=== PATIENT | male | born 1955 | race Caucasian/White ===

== ENCOUNTER 2017-07-26 09:20 | Day surgery (SDC) | payer BC ==
[~2017-07-26 09:20] MED LIST: ceFAZolin 2 GM/SWFI 2 GM/20 ML SYR IVP ONE
[2017-07-26] MEDS ORDERED: LR 1,000 ML IV ONE (09:35)
[2017-07-26] MEDS ORDERED: ceFAZolin 2 GM/SWFI 20 ML SYR IVP ONE (09:45)
[2017-07-26] MEDS ORDERED: BUPIVACAINE/EPI 0.5% 30 ML SDV ONE (09:55)
[2017-07-26] MEDS ORDERED: MIDAZOLAM 2 MG/2 ML VIAL ONE (10:31)
[2017-07-26] MEDS ORDERED: fentaNYL 100 MCG/2 ML INJ ONE (10:36)
[2017-07-26] MEDS ORDERED: PROPOFOL/EMULSION 500 MG/50 ML BOTTLE IV ONE (10:36)
--- NOTE | 2017-07-26 10:43 | PDHPUP ---
History & Physical Update H&P update statement: This history and physical update is based on an assessment of the patient which was completed after admission or registration (within 24 hours), but prior to the surgery/procedure. H&P update: H&P reviewed & patient examined, no change in patient's condition since H&P completed
--- NOTE | 2017-07-26 10:47 | PDANEPAE ---
ANE Past Medical History - Cardiovascular History Hx Arrhythmias: Yes Hx Chest Pain: No Hx Coronary Artery / Peripheral Vascular Disease: No Hx CHF / Valvular Disease: No Hx Palpitations: Yes Cardiovascular History Comment: BP tends to be on the low side. afib. Will request records from Dr Jb sanchez - Pulmonary History Hx COPD: No Hx Asthma/Reactive Airway Disease: No Hx Recent Upper Respiratory Infection: No Hx Oxygen in Use at Home: No Hx Sleep Apnea: No Sleep Apnea Screening Result - Last Documented: Negative - Neurologic History Hx Cerebrovascular Accident: Yes Hx Seizures: No Neurologic History Comment: ? TIA , ? absence seizures, migraines with auras - Endocrine History Hx Diabetes: No - Renal History Hx Renal Disorders: No - Liver History Hx Hepatic Disorders: No - Neurological & Psychiatric Hx Hx Neurological and Psychiatric Disorders: Yes Neurological / Psychiatric History Comment: anxiety - Cancer History Hx Cancer: No - Congenital Disorder History Hx Congenital Disorders: No - GI History Hx Gastrointestinal Disorders: No - Other Health History Other Health History: splits on fingers work related - Chronic Pain History Chronic Pain: Yes - Surgical History Prior Surgeries: AVR with return to surgery 2006 and complicated recovery ANE Review of Systems Review of Systems: - Exercise capacity METS (RN): 5 METS ANE Patient History - Allergies Allergies/Adverse Reactions: No Known Allergies Allergy (Verified 07/17/17 16:44) - Home Medications Home Medications: Atorvastatin Calcium 07/17/17 [Last Taken 07/25/17] Finasteride 07/17/17 [Last Taken 07/25/17] Warfarin Sodium 07/17/17 [Last Taken 07/21/17] - NPO status NPO Since - Liquids (Date): 07/25/17 NPO Since - Solids (Date): 07/25/17 - Smoking Hx Smoking Status: Never smoked - Family Anes Hx Family Hx Anesthesia Complications: none ANE Labs/Vital Signs - Vital Signs Blood Pressure: 114/81 Heart Rate: 62 Respiratory Rate: 16 O2 Sat (%): 94 Height: 175.26 cm Weight: 76.204 kg ANE Physical Exam - Airway Neck exam: FROM Mallampati Score: Class 2 Mouth exam: normal dental/mouth exam - Pulmonary Pulmonary: no respiratory distress, no rales or rhonchi, clear to auscultation - Cardiovascular Cardiovascular: regular rate and rhythym, no murmur, rub, or gallop - ASA Status ASA Status: III ANE Anesthesia Plan Anesthesia Plan: general endotracheal anesthesia
[2017-07-26] MEDS ORDERED: DEXAMETHASONE 4 MG/ML VIAL ONE (11:08)
[2017-07-26] MEDS ORDERED: ROCURONIUM 50 MG/5 ML VIAL ONE (11:08)
[2017-07-26] MEDS ORDERED: METOCLOPRAMIDE 10 MG/2 ML VIAL ONE (11:08)
[2017-07-26] MEDS ORDERED: KETOROLAC 30 MG/1 ML SDV ONE (11:08)
[2017-07-26] MEDS ORDERED: ONDANSETRON 4 MG/2 ML VIAL ONE (11:08)
[2017-07-26] MEDS ORDERED: SUGAMMADEX SODIUM 200 MG/2 ML VIAL IVP ONE (11:08)
[2017-07-26] MEDS ORDERED: LIDOCAINE 2% 5 ML SDV ONE (11:08)
[2017-07-26] MEDS ORDERED: NALOXONE HCL 0.4 MG/ML INJ IVP PRN (11:09)
[2017-07-26] MEDS ORDERED: ONDANSETRON 4 MG/2 ML VIAL IVP PRN (11:14)
[2017-07-26] MEDS ORDERED: ACETAMINOPHEN 500 MG TAB PO PRN (11:14)
[2017-07-26] MEDS ORDERED: MEPERIDINE 25 MG/ML SYR IVP PRN (11:14)
[2017-07-26] MEDS ORDERED: LR 500 ML IV PRN (11:14)
[2017-07-26] MEDS ORDERED: ALBUTEROL 3 ML DEYVIAL IH PRN (11:14)
[2017-07-26] MEDS ORDERED: fentaNYL 100 MCG/2 ML INJ IVP PRN (11:14)
[2017-07-26] MEDS ORDERED: OXYCODONE/APAP 5/325 TAB PO PRN (11:14)
[2017-07-26] MEDS ORDERED: HYDROCODONE/APAP 5/325 TAB PO PRN (11:14)
[2017-07-26] MEDS ORDERED: DEXAMETHASONE 4 MG/ML VIAL IVP PRN (11:14)
[2017-07-26] MEDS ORDERED: METOCLOPRAMIDE 10 MG/2 ML VIAL IVP PRN (11:14)
--- NOTE | 2017-07-26 12:06 | POSTOPPROG ---
Post Op Note Date of Operation: 07/26/17 Surgeon: Micah Borrego Anesthesiologist: Dr. Silva Anesthesia: GET(General Endotracheal) Pre-op Diagnosis: BIH Post-op Diagnosis: BIH Procedure: Lap BIHR Inf/Abcess present in the surg proc area at time of surgery?: No EBL: Minimal
[2017-07-26 12:10] VITALS: PULSE 57; TEMP 96.6
--- NOTE | 2017-07-26 13:11 | POSTANESTH ---
Post Anesthetic Evaluation Cardiovascular Status: Normal, Stable Respiratory Status: Normal, Stable Level of Consciousness/Mental Status: Mildly Sleepy, Arousable Pain Control: Adequate, Prn Tx Ordered Nausea/Vomiting Control: Adequate, Prn Tx Ordered Complications Possibly Related to Anesthesia: None Noted
[2017-07-26 13:16] VITALS: O2SAT 95
[2017-07-26 14:41] VITALS: BP 90/63; RESP 14
--- NOTE | 2017-07-27 09:24 | GOP ---
[f rep st] OPERATIVE REPORT DATE OF OPERATION: 07/26/2017 SURGEON: Austin Borrego MD ANESTHESIA: General endotracheal anesthesia. ANESTHESIOLOGIST: Lenora Silva MD PREOPERATIVE DIAGNOSIS: Bilateral inguinal hernia. POSTOPERATIVE DIAGNOSIS: Bilateral inguinal hernia. PROCEDURE PERFORMED: Laparoscopic totally extraperitoneal bilateral inguinal hernia repair. FINDINGS: Patient had a moderate indirect and small direct on the left, and a moderate indirect with a small lipoma on the right. ESTIMATED BLOOD LOSS: 20 cc. INDICATIONS: 61-year-old male with a history of groin bulge. Risks and benefits of procedure were d iscussed with patient and his family, their questions were answered, they wished to proceed. DESCRIPTION OF PROCEDURE: The patient was placed in the supine position. After the induction of ariane quate general endotracheal anesthesia, the patient was prepped and draped in the sterile surgical fas hion. Marcaine 0.5% was injected in the infra-umbilical area and a transverse incision was made, silvia roximately 10 mm in length. This was carried down to the subcutaneous tissue with blunt dissection. The anterior fascia was exposed and incised just lateral to the midline. The preperitoneal space wa s then created bluntly, and the balloon dissector introduced. Once this was appropriately positioned , it was inflated under direct vision using the laparoscope. Once adequate dissection had been obtai mark, the balloon was deflated and withdrawn. The balloon stabilizer was then placed into the same pr eperitoneal plane. The balloon stabilizer was then inflated. The preperitoneal space was then insufflated with carbon dioxide. Two more trocars were placed, both in the midline in the supraumbilical and mid lower abdomen sites. These were both placed under dire ct vision after injecting 0.5% Marcaine for local anesthesia. Blunt dissection was used to expose Hesselbach's triangle. Lenny's ligament was then exposed and th e femoral space explored. Next the space of Bogros was cleared laterally. The cord structures were seen and preserved, and the preperitoneal fat was retracted in a [id number] fashion. The hernia sac was then retracted in a similar fashion. A shaped mesh was then introduced through th e 11-mm trocar and oriented appropriately. It was positioned to ensure coverage of the direct, indir ect, and femoral spaces. The peritoneum and preperitoneal fat were placed over the bottom edge of th e mesh to ensure placement. The carbon dioxide was then allowed to escape and the mesh observed to e nsure positioning. All trocars were then removed under direct vision. Good hemostasis was noted. The fascia at the 11-mm trocar site was closed with 0 Vicryl in an interrupted fashion. The wounds w ere thoroughly irrigated, and the skin was closed with 5-0 Monocryl in a subcuticular stitch. The wo unds were sterilely dressed. The patient was extubated and taken to the post-anesthesia care unit in stable condition. COMPLICATIONS: None. DRAINS: None. ADDENDUM: A large Bard 3DMax mesh was used on each side. /[id number]/MODL
== END 2017-07-26 14:47 | disposition home or self-care (01) ==
LOC: FSGY 09:20
PROVIDERS: ATTEND Surgery
PROC: 0YUA4JZ Supplement Bilateral Inguinal Region with Synthetic Substitute, Percutaneous Endoscopic Approach (ICD-10-PCS; principal; 2017-07-26 11:00)
DX: K40.20 Bilateral inguinal hernia, without obstruction or gangrene, not specified as recurrent (principal); I48.91 Unspecified atrial fibrillation; E78.5 Hyperlipidemia, unspecified; N40.0 Benign prostatic hyperplasia without lower urinary tract symptoms; Z86.73 Personal history of transient ischemic attack (TIA), and cerebral infarction without residual deficits; Z95.2 Presence of prosthetic heart valve
CPT/HCPCS: C1727; C1781; J0690; J1100; J1885; J2250; J2405; J2704; J2765; J3010

== ENCOUNTER → 2018-06-26 | Outpatient (CLI) | payer BC | END | disposition home or self-care (01) | LOC: FIMAGING 09:00 | PROVIDERS: ATTEND Internal Medicine | DX: M85.88 Other specified disorders of bone density and structure, other site (principal); Z79.01 Long term (current) use of anticoagulants ==

== ENCOUNTER 2018-09-17 10:47 | Inpatient (IN) | payer BC ==
[2018-09-17 11:20] LABS: PLATELET COUNT 254 10^3/uL (150-400)
--- NOTE | 2018-09-17 13:06 | EDPHY ---
H & P Stated Complaint: intermittent episodes of tachycardia dizzy Time Seen by Provider: 09/17/18 11:08 HPI/ROS: CHIEF COMPLAINT: Near syncope, recurrent HISTORY OF PRESENT ILLNESS: 62-year-old male s/p AVR presents with near syncope x 3. Several month h/o intermittent episodes of a moderate chest clenching sensation, followed by severe dizziness and collapsing to the ground. The episodes are transient and he generally feels well within a couple of minutes. The episodes usually occur every 4-6 weeks. He had a Holter monitor that revealed tachycardia, according to the patient. Took Metoprolol for a while, but no longer taking metoprolol. 3 similar episodes in the past 24 hours. He is currently asymptomatic. On Coumadin. No injuries during the falls. No head/neck injury or pain. REVIEW OF SYSTEMS: complete 10 point ROS reviewed and is negative except for the noted elements in the HPI - Personal History Current Tetanus Diphtheria and Acellular Pertussis (TDAP): Yes - Medical/Surgical History Hx Asthma: No Hx Chronic Respiratory Disease: No Hx Diabetes: No Hx Cardiac Disease: Yes Hx Renal Disease: No Hx Cirrhosis: No Hx Alcoholism: No Hx HIV/AIDS: No Hx Splenectomy or Spleen Trauma: No Other PMH: afib/tachycardia sleep apnea - Social History Smoking Status: Never smoked Alcohol Use: Sober Drug Use: None Additional Social History: - Physical Exam Exam: General Appearance: Alert, pleasant Eyes: Pupils equal and round, no conjunctival pallor or injection ENT, Mouth: Mucous membranes moist Neck: Normal inspection Respiratory: Lungs are clear to auscultation Cardiovascular: Regular rate and rhythm Gastrointestinal: Abdomen is soft and nontender Neurological: A&O, nonfocal exam Skin: Warm and dry Extremities: Nontender, no pedal edema Psychiatric: Anxious Constitutional: Initial Vital Signs Temperature (C) 36.4 C 09/17/18 10:52 Heart Rate 70 09/17/18 10:52 Respiratory Rate 18 09/17/18 10:52 Blood Pressure 119/84 H 09/17/18 10:52 O2 Sat (%) 96 09/17/18 10:52 O2 Delivery Mode Room Air O2 (L/minute) 2 Allergies/Adverse Reactions: metoprolol Allergy (Verified 09/17/18 13:40) Seizures Home Medications: Medication Instructions Recorded Warfarin Sodium [Coumadin 5MG (*)] 10 mg PO HS #0 07/17/17 Aspirin [Aspirin 81mg (*)] 81 mg PO DAILY 09/17/18 Herbals/Supplements -Info Only 1 ea PO DAILY 09/17/18 [place]-3 Fatty Acids [Fish Oil 1000 1,000 mg PO DAILY 09/17/18 mg (*)] Medical Decision Making - Diagnostics EKG Interpretation: EKG sinus rhythm, rate 59, diffuse nonspecific T-wave changes. Interpretation: Abnormal EKG ED Course/Re-evaluation: This patient presents with recurrent near syncopal episodes. Stat EKG reveals sinus rhythm without ischemia or dysrhythmia. troponin normal. During his ED stay, the patient had sudden onset of dizziness. monitoring engineer revealed bradycardia with a heart rate of 30 during this episode, followed by transient junctional rhythm. The bradycardia was transient and the dizziness quickly resolved once HR normalized. BP not obtained during the episode. Laboratory studies and monitor findings discussed with the patient and his at length. Recurrent near syncopal episodes secondary to bradycardia. The hospitalist service was consulted for admission for symptomatic bradycardia. Marilyn lockwood [facility] was consulted and will see the patient in the hospital. Differential Diagnosis: Differential diagnosis includes though is not limited to cardiac dysrhythmia, CVA, TIA, GI bleed, sepsis, hypoglycemia. - Data Points Laboratory Results: Laboratory Results 09/18/18 05:06 09/18/18 05:06 Point of Care Test Results: Chemistry 09/17/18 11:13 POC Troponin I 0.00 ng/mL ng/mL (0.00-0.08) Departure - Departure Disposition: [facility] Inpatient Acute Clinical Impression: Symptomatic bradycardia Condition: Fair
[2018-09-17] MEDS ORDERED: ONDANSETRON DISINTEGRATING 4 MG TAB PO PRN (14:08)
[2018-09-17] MEDS ORDERED: ACETAMINOPHEN 325 MG TAB PO PRN (14:08)
[2018-09-17] MEDS ORDERED: ONDANSETRON 4 MG/2 ML VIAL IVP PRN (14:08)
[2018-09-17 14:34] LABS: INR 1.25 (0.83-1.16); PROTIME(PATIENT) 15.2 SEC (12.0-15.0)
--- NOTE | 2018-09-17 14:38 | GHP ---
[f rep st] HISTORY AND PHYSICAL DATE OF ADMISSION: 09/17/2018 CHIEF COMPLAINT: syncope HISTORY OF PRESENT ILLNESS: This is a 62-year-old man with a history of a bioprosthetic aortic valve replacement about 12 years ago who presents with syncope or pre-syncope. He has been having episodes of this for about the last 6 months. They have been about once a month. Described as sudden. He gets a clenching tightness in his chest and then almost immediately feels as though he is going to pass out. He has hit the floor and actually passed out a few times. He presented to the ED today because he had 3 episodes in the last 2 days. He notably had a Holter monitor placed in July which showed tachycardia. He does have a history of atrial fibrillation, though this was described to him is supraventricular tachycardia down at the [facility]. He was started on metoprolol, but he felt as though this made his migraines worse. He is also concerned that he may be having some absence seizures that started with metoprolol. Regardless, he quit taking the metoprolol in August. When he was in the emergency department, he had an episode of dizziness, and he had a bradycardic episode caught on telemetry down to approximately 37 beats per minute. He did not feel syncopal during this. He has also been taking many supplements since these issues have begun. He has cut out dairy and sugar in his diet. PAST MEDICAL/SURGICAL HISTORY: 1. Aortic valve replacement in 2006. 2. Atrial fibrillation, currently on warfarin. 3. Obstructive sleep apnea. 4. Bilateral hernia repair. 5. TURP. MEDICATIONS: Please see medication reconciliation. ALLERGIES: Metoprolol. FAMILY HISTORY: Reviewed, noncontributory. SOCIAL HISTORY: Does not drink or smoke. He is accompanied by his . REVIEW OF SYSTEMS: A 10-point review of systems is conducted and is negative except per HPI. PHYSICAL EXAM: VITAL SIGNS: Blood pressure 122/87, heart rate 69, respiration rate 16, saturating 97% on room air. Temperature 36.4. GENERAL: This patient is a pleasant man who is resting comfortably. No acute distress. HEENT: Shows him to be normocephalic, atraumatic. CARDIOVASCULAR: Shows a regular rate and rhythm. No murmurs, rubs, or gallops. PULMONARY: Lungs clear to auscultation bilaterally. ABDOMEN: Soft, nontender, nondistended. SKIN: Shows no rash. : Shows no Miller. NEUROLOGIC: Shows him to be alert and oriented x3. He is moving all extremities. PSYCHIATRIC: Shows normal mood and affect. LABORATORY: CBC is normal. INR is pending. Basic metabolic panel is normal. Initial troponin is negative. DATA: 1. I discussed this with Dr. Quiroga. Will admit to PCU. 2. I personally viewed and interpreted his EKG. This shows sinus rhythm. He has T-wave inversion in lead III. 3. I reviewed his telemetry. This shows bradycardia. I believe it is sinus, though it is impossible to exclude junctional. The rate is in the 30s for at least 5 beats, and then, the telemetry strip ends. IMPRESSION AND PLAN: 1. syncopal episodes: Suspect that this is due to bradyarrhythmia. He was also recently diagnosed with supraventricular tachycardia by his investment counselor. I will request these records. Cardiology has been consulted. We will place him on telemetry and order an echocardiogram. He may need a pacemaker. I have made him nothing by mouth for now, though. This could likely happen tomorrow. Will need to decide what to do with his warfarin periprocedurally if this is the case, I will hold it for now. Again, INR is pending. 2. Atrial fibrillation: We will await his INR. He is not on a sonal katlin. 3. Obstructive sleep apnea: Just picked up his continuous positive airway pressure today. /[id number]/MODL MTDD
--- NOTE | 2018-09-17 15:04 | CPEKG ---
Test Reason : OPEN Blood Pressure : / mmHG Vent. Rate : 059 BPM Atrial Rate : 000 BPM P-R Int : 158 ms QRS Dur : 093 ms QT Int : 414 ms P-R-T Axes : 012 -06 -29 degrees QTc Int : 411 ms Junctional rhythm Borderline T abnormalities, diffuse leads Confirmed by Kristen Quiroga ([id number]) on 09/17/2018 3:04:30 PM Referred By: PHYSICIAN ED Confirmed By:Kristen Quiroga
--- NOTE | 2018-09-17 16:38 | ECHO ---
[email or web address] [address] [address] Main: [phone] Echocardiography Examination Transthoracic Name: BRAD GARCIA MR#: [id number] Study Date: 09/17/2018 Study Time: 02:45 PM Date of : 1955 Age: 62 year(s) Height: 175.3 cm (69 in.) Weight: 76.2 kg (168 lb.) BSA: 1.92 m2 Gender: Male Examination: Echo Contrast: Image Quality: Adequate Rhythm: Heart Rate: 62 bpm BP: 122 mmHg/87 mmHg Indication: Cardiac: syncope Procedure Staff Referring Physician: Mechanical Unit Repairer: Светлана Jones [facility] Reading Physician: Bonilla Benavides MD Requesting Provider: Indication: Cardiac: syncope Measurements Chambers AV/MV Label Value Normal Value Label Value Normal Value IVSd, 2D 1.2 cm (0.6cm - 1.1cm) AV PGmax 29 mmHg LVDd, 2D 4.3 cm (4.2cm - 5.9cm) AV PGmean 17 mmHg LVDs, 2D 3 cm (2.1cm - 4cm) AV Vmax 2.68 m/s LVEF visual 65 % TESS D (continuity eq. 1 cm2 LVEF, 2D 58 % (54% - 74%) VTI) LVEF, MOD2 68 % (55% - 70%) MV A Vmax 0.5 m/s LVEF, MOD4 71 % (55% - 70%) MV DT 246 ms LVOT PGmean 2 mmHg MV E' lateral 0.07 m/s LVOT Vmean 0.7 m/s MV E' mean 0.06 m/s LVOTd 1.8 cm (1.9cm - 2.1cm) MV E' septal 0.06 m/s LVPWd, 2D 0.9 cm (0.6cm - 1cm) MV E Vmax 0.65 m/s RVDd, 2D 3.4 cm (1.9cm - 3.8cm) MV E/A 1.3 LADs, 2D 4.2 cm (3cm - 4cm) MV E/E' lateral 9.3 LAESV index, BP 26.6 ml/m2 MV E/E' mean 10 RA Area 14.4 cm2 MV E/E' septal 10.9 (0.45 - 1.25) Additional Vessels MV PHT 0.07 s Label Value Normal Value MV PHT 71 ms AoAsc 3.8 cm MVA PHT 3.1 cm2 AoRoot, 2D 3.4 cm (1.4cm - 2.6cm) TV/PV IVC 1.3 cm (1.2cm - 2.3cm) Label Value Normal Value Patient: BRAD GARCIA Study Date: 09/17/2018 Page 1 of 3 02:45 PM RA Pressure 5 mmHg RVSP 35 mmHg TR Pmax 30 mmHg TR Vmax 2.74 m/s PV PGmax 7 mmHg PV Vmax, Caliper 1.29 m/s (0.6m/s - 0.9m/s) Conclusions Left Ventricle: Normal global systolic left ventricular function. EF range is estimated at 60 % - 65 %. Mitral Valve: Mild mitral regurgitation. Aortic Valve: The aortic valve is a bioprosthesis. The prosthetic aortic valve is normal. Tricuspid Valve: Mild tricuspid regurgitation. Right Ventricular systolic pressure is measured at 35 mmHg. Findings Left Ventricle: Left ventricle is normal in size. Normal global systolic left ventricular function. The EF is visually estimated to be 65 %. EF range is estimated at 60 % - 65 %. The LV wall thickness is at the upper limits of normal. There are no regional wall motion abnormalities. Right Ventricle: Normal size right ventricle. Right ventricular systolic function is normal. Left Atrium: The left atrium is normal in size. There is echogenicity noted in LA most likely consistent with shadowing from aortic valve bioprosthesis. Mitral Valve: Mitral valve appears structurally normal. Mild mitral regurgitation. No mitral valve stenosis. Aortic Valve: The aortic valve is a bioprosthesis. The prosthetic aortic valve is normal. The orifice motion of the prosthetic aortic valve is normal. No prosthesis regurgitation. Tricuspid Valve: Tricuspid valve leaflets are structurally normal. Mild tricuspid regurgitation. No tricuspid valve stenosis. Right Ventricular systolic pressure is measured at 35 mmHg. Pulmonary artery pressure normal. Pulmonic Valve: Pulmonic leaflets are structurally normal. Trivial pulmonic valve regurgitation is present. Aorta: The aortic root size in 2D measures 3.4 cm. The ascending aorta measures 3.8 cm. Aorta Measurements AoRoot, 2D is 3.4 cm. IVC: The inferior vena cava is normal in size. Exam Details Patient: BRAD GARCIA Study Date: 09/17/2018 Page 2 of 3 02:45 PM Procedure Ordered: Echo Procedure Status: Routine study Image Quality: Adequate Facility Location: Cardiac Echo 1 (No Signature Object) Patient: BRAD GARCIA Study Date: 09/17/2018 Page 3 of 3 02:45 PM [id number]
--- NOTE | 2018-09-17 17:13 | GCON ---
[f rep st] CONSULTATION CARDIOLOGY CONSULTATION REFERRING PHYSICIAN: Juan M Ng MD REASON FOR CONSULTATION: We were asked by Dr. Ng to evaluate the patient for his episodes of presyncope. HISTORY OF PRESENT ILLNESS: The patient is a 62-year-old male with a past medical history significant for bicuspid aortic valve, status post bioprosthetic aortic valve replacement in 2006, obstructive sleep apnea, which is a new diagnosis, paroxysmal atrial fibrillation status post cardioversion in 2008. He reports a complicated hospital course at the time of his aortic valve replacement. He was to have a minimally invasive aortic valve, but then required emergent surgery that then became a sternotomy on the same day. Postsurgically, he had a bout of pericarditis. Since then, he reports he has had routine echoes that show normal valvular function. Over the past 6 months, he has noted episodes of what he calls "violent chest squeezing," which then results in him collapsing to the ground. He notes presyncope as the reason he collapses. Symptoms last for 10 to 30 seconds and resolve spontaneously. He had 1 episode while driving. He had this squeezing and then had loss of consciousness. He did not go to seek emergency attention as he had no injury though he reports his car was not drivable. Over the weekend, he had these episodes daily, and today, he had 3 episodes. He was on his way to picker packer his CPAP for his recently diagnosed sleep apnea, and while trying to leave the sleep center, he had an episode. Again, this was only presyncope without overt syncope. He reports he is active. He has not noted any exercise limitations. He has seen a management lecturer at [facility] who obtained a 7-day monitor. During the monitoring, he had an episode of his symptoms. We do not have the data from this yet. Patient reports that it was possibly some kind of tachycardia. Due to the episode of syncope, he was told to discontinue driving. He denies any recent illness. He has not been noting fever, chills, cough, hemoptysis, dysuria, hematuria, diarrhea. He has had no focal deficits. He reports that since his open-heart surgery, he has had issues with what he calls absence seizures. He was started on some antiseizure medications in the past, but that caused behavioral changes. He has, therefore, stopped taking any of those medications. PAST MEDICAL HISTORY: 1. Aortic valve replacement. 2. Atrial fibrillation in 2008. This required cardioversion. 3. FRANKIE, recently started on CPAP. 4. History of bilateral hernia repair. 5. History of TURP. 6. Absence seizures versus migraines. MEDICATIONS: Outpatient medications include warfarin and aspirin. He has a long list of supplements he takes as well. FAMILY HISTORY: Reviewed and noncontributory. SOCIAL HISTORY: He is a nonsmoker and denies any alcohol intake. He is here with his . REVIEW OF SYSTEMS: As per HPI. A complete 10-point review of systems was obtained and is negative, except for what is dictated. PHYSICAL EXAMINATION: VITAL SIGNS: BP of 122/87, heart rate of 69, respirations 16, O2 saturation 97% on room air. GENERAL: He is a very pleasant male in no apparent distress. HEENT: Normocephalic, atraumatic. Eyes without scleral icterus. Mucous membranes are moist. Hearing is within normal limits. NECK: Supple with no JVD. HEART: Regular rate and rhythm with a soft 2/6 systolic ejection murmur. LUNGS: Clear to auscultation. ABDOMEN: Soft with normoactive bowel sounds. : No Miller present. SKIN: Warm and dry without edema. PSYCH: Normal mood and affect. NEURO: No focal deficits detected. LABORATORY/IMAGING: BMP with sodium 136, potassium 4.6, chloride 106, CO2 24, BUN 18, creatinine 0.8, glucose 87. CBC with WBC 4.02, hemoglobin 16.1, hematocrit 47.7, platelet count of 254. INR 1.25. 12-lead ECG personally interpreted. It shows sinus rhythm with a left atrial abnormality and diffuse T-wave abnormalities I have discussed patient's care with Dr. Ng. Telemetry personally reviewed shows a sinus rhythm, and during an episode while in the ED, he developed a junctional rhythm with a heart rate of 30. This correlated to his symptoms. IMPRESSION AND PLAN: The patient is a 62-year-old male who presents with presyncope and syncope. 1. Chest squeezing. He notes a chest squeezing antecedent to his presyncopal and syncopal episodes. We will plan to rule out a cardiac process with serial enzymes. He will be scheduled for stress testing in the morning if he rules out. 2. Near syncope and syncope. On his telemetry from the ED, this correlates to a junctional rhythm. This may warrant a pacemaker versus being secondary to pain. This will be reviewed with our electrophysiology services. He will be kept n.p.o. after midnight. 3. Episodes of tachycardia. It is unclear if he is also having tachyarrhythmia as he states that the 7-day monitor that he wore showed tachycardia, which also correlated to his symptoms of presyncope. We are requesting records from the [facility]. 4. History of aortic valve disease. An echo has been obtained and results are pending at this time. /[id number]/MODL MTDD
[2018-09-17] MEDS ORDERED: ATROPINE SULFATE 1 MG/10 ML SYR ONE (17:55)
[2018-09-18 05:23] LABS: PLATELET COUNT 242 10^3/uL (150-400)
[2018-09-18 05:33] LABS: INR 1.17 (0.83-1.16); PROTIME(PATIENT) 14.4 SEC (12.0-15.0)
--- NOTE | 2018-09-18 09:04 | HOSPPROG ---
Hospitalist Progress Note Assessment/Plan: # syncopal events, junctional bradycardia - cardiology is discussing options with EP - need to get outside records indicating "tachycardia" on event monitor # chest pain - stress test per cards # hx AVR - stable on echo # possible a-fib - on warfarin but subtherapeutic # migraines, absence seizures - per his report, he gets an aura before he has absence seizures - if he has a full episode will consult neurology # FRANKIE - just got a home CPAP Subjective: episode of dizziness around 9:00 p.m. He feels like he has a migraine aura Objective: Vital Signs Temp Pulse Resp BP Pulse Ox 36.7 C 78 13 110/72 95 09/18/18 08:00 09/18/18 08:00 09/18/18 08:00 09/18/18 08:00 09/18/18 08:00 Laboratory Results 09/18/18 05:06 09/18/18 05:06 09/17/18 09/18/18 09/19/18 05:59 05:59 05:59 Intake Total 400 Output Total 200 Balance 200 PT 14.4 SEC (12.0-15.0) 09/18/18 05:06 INR 1.17 (0.83-1.16) H 09/18/18 05:06 High risk Discussed with Marilyn Telemetry strip personally reviewed - Physical Exam Constitutional: no apparent distress, appears nourished Cardiovascular: regular rate and rhythym, no murmur, rub, or gallop Respiratory: no respiratory distress, no rales or rhonchi, clear to auscultation Gastrointestinal: soft, non-tender abdomen, no palpable masses, No guarding, No rebound ICD10 Worksheet Patient Problems: Problems Problem Status Onset Symptomatic bradycardia Acute
[2018-09-18] MEDS ORDERED: REGADENOSON 0.4 MG/5 ML SYR IVP ONE (11:10)
--- NOTE | 2018-09-18 11:43 | PDCARST ---
CAR Stress Test Results Type of Stress Test: Nuclear TM stress test Indication: chest pain Description of Procedure: was performed with standard stress test conductor electrode placement. Vital signs were monitored according to protocol throughout the procedure. STRESS EKG AND HEMODYNAMIC DATA. Exercise time: 9: 30 min. This is equivalent to: 10.5 METS. Resting heart rate: 72 bpm. Resting blood pressure: 100/66 mmHg. Resting O2 saturation: 95 %. Peak heart rate: 133 bpm. This is 83 % of age predicted maximum heart rate response. Peak blood pressure: 140/74 mmHg. Exercise O2: 95 %. Arrhythmias : rare PVC at baseline, occasional exertional PVC/PAC. Reason for termination: The test was stopped due to maximal effort. Symptoms: The patient experienced no typical symptoms of angina during stress or recovery. STRESS TEST ANALYSIS. Baseline ECG: SR with mild ST-T w abn. Stress ECG: sinus tach with 1 mm horizontal STD. Equivocal exercise induced ischemic ECG changes. Rhythm: occasional PVC and PAC arrhythmias noted during exercise and recovery. Blood pressure: normal blood pressure response to exercise. Exercise tolerance: The patient has normal exercise tolerance adjusted for age and gender. Impression: Baseline ECG abnormalities with worsening with exertion. No cp. Conclusion: Await nuclear images.
--- NOTE | 2018-09-18 12:07 | PDCARST ---
CAR Stress Test Results Type of Stress Test: see previous dictation - this was entered as duplicate erroneously.
--- NOTE | 2018-09-18 14:52 | ASMTCMCOM ---
CM Note CM Note Notes: 09/18/2018 Case Management Note Discussed with RN. Pt admitted for symptomatic bradycardia. Stress test planned. There are no therapy evals ordered today. There are no case management d/c needs identified d/t pt age, marital status, rmplyment status and independence with ADL's prior to admission. Case Management d/c poc: independent with follow up as directed. Case Management available if needs change. Date Signed: 09/18/2018 02:52 PM Electronically Signed By:Teetee Flores RN
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
--- NOTE | 2018-09-18 17:07 | PDMN ---
Medical Necessity Medical necessity: Change to inpt as of 09/18/18 @ 16:09, pt meets inpt criteria per MD order and MCG M-340, Syncope. 62 y/o w/hx bioprosthetic aortic valve replacement 12 yrs ago, SVT, and afib, admitted w/syncopla episodes, junctional bradycardia. and chest tightness. Upgraded to inpt for further eval/management of above, had another syncopal episode last night, cardiology consult, stress test today, considering EP options. Est LOS>2MN.
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
[2018-09-19 04:37] LABS: PLATELET COUNT 237 10^3/uL (150-400)
[2018-09-19 04:54] LABS: INR 1.04 (0.83-1.16); PROTIME(PATIENT) 13.2 SEC (12.0-15.0)
[2018-09-19] MEDS ORDERED: NS 1,000 ML IV ONE (06:00)
[2018-09-19] MEDS ORDERED: BACITRACIN IRRIGATION/NS 50,000 UNITS/1,000 ML BTL IRR ONE (06:00)
[2018-09-19] MEDS ORDERED: ceFAZolin 2 GM/DEXTROSE 100 ML IV ONE (06:00)
[2018-09-19] MEDS ORDERED: LIDOCAINE 1% 300 MG/30 ML SDV ONE (11:30)
[2018-09-19] MEDS ORDERED: BUPIVACAINE 0.75% 10 ML SDV ONE (11:30)
[2018-09-19] MEDS ORDERED: MIDAZOLAM 2 MG/2 ML VIAL IVP ONE (12:06)
--- NOTE | 2018-09-19 12:09 | PDANEPAE ---
ANE Past Medical History - Cardiovascular History Hx Arrhythmias: Yes Hx Chest Pain: No Hx Coronary Artery / Peripheral Vascular Disease: No Hx CHF / Valvular Disease: No Hx Palpitations: Yes Cardiovascular History Comment: BP tends to be on the low side. afib. Will request records from Dr Muhammad cards - Pulmonary History Hx COPD: No Hx Asthma/Reactive Airway Disease: No Hx Recent Upper Respiratory Infection: No Hx Oxygen in Use at Home: No Hx Sleep Apnea: Yes - Neurologic History Hx Cerebrovascular Accident: Yes Hx Seizures: No Neurologic History Comment: ? TIA , ? absence seizures, migraines with auras - Endocrine History Hx Diabetes: No Obesity: mild - Renal History Hx Renal Disorders: No - Liver History Hx Hepatic Disorders: No - Neurological & Psychiatric Hx Hx Neurological and Psychiatric Disorders: Yes Neurological / Psychiatric History Comment: anxiety - Cancer History Hx Cancer: No - Congenital Disorder History Hx Congenital Disorders: No - GI History GERD: no Hx Gastrointestinal Disorders: No - Other Health History Other Health History: splits on fingers work related - Chronic Pain History Chronic Pain: Yes (back, shoulder) - Surgical History Prior Surgeries: AVR with return to surgery 2006 and complicated recovery ANE Review of Systems Review of Systems: ANE Patient History - Allergies Allergies/Adverse Reactions: metoprolol Allergy (Verified 09/17/18 13:40) Seizures - Home Medications Home medications: home medication list seen and reviewed Home Medications: Warfarin Sodium [Coumadin 5MG (*)] 10 mg PO HS #0 07/17/17 [Last Taken 09/15/18] Aspirin [Aspirin 81mg (*)] 81 mg PO DAILY 09/17/18 [Last Taken Unknown] Herbals/Supplements -Info Only 1 ea PO DAILY 09/17/18 [Last Taken Unknown] [place]-3 Fatty Acids [Fish Oil 1000 mg (*)] 1,000 mg PO DAILY 09/17/18 [Last Taken Unknown] - NPO status NPO Status: no food or drink >8 hours - Anes Hx Anes Hx: no prior problems - Smoking Hx Smoking Status: Never smoked - Alcohol Use Alcohol Use: Sober - Family Anes Hx Family Hx Anesthesia Complications: none ANE Labs/Vital Signs - Labs Result Diagrams: 09/19/18 03:22 09/19/18 03:22 - Vital Signs Blood Pressure: 99/75 Heart Rate: 52 Respiratory Rate: 16 O2 Sat (%): 93 Height: 175.26 cm Weight: 76.204 kg ANE Physical Exam - Airway Neck exam: FROM Mallampati Score: Class 2 Mouth exam: normal dental/mouth exam - Pulmonary Pulmonary: no respiratory distress, no rales or rhonchi, clear to auscultation - Cardiovascular Cardiovascular: regular rate and rhythym, no murmur, rub, or gallop - ASA Status ASA Status: III ANE Anesthesia Plan Anesthesia Plan: MAC
[2018-09-19] MEDS ORDERED: fentaNYL 100 MCG/2 ML INJ IVP PRN (12:10)
[2018-09-19] MEDS ORDERED: ACETAMINOPHEN 500 MG TAB PO PRN (12:10)
[2018-09-19] MEDS ORDERED: HYDROCODONE/APAP 5/325 TAB PO PRN (12:10)
[2018-09-19] MEDS ORDERED: NS 500 ML IV PRN (12:10)
[2018-09-19] MEDS ORDERED: PROMETHAZINE HCL 25 MG/ML INJ IVP PRN (12:10)
[2018-09-19] MEDS ORDERED: NALOXONE HCL 0.4 MG/ML INJ IVP PRN (12:10)
[2018-09-19] MEDS ORDERED: ONDANSETRON 4 MG/2 ML VIAL IVP PRN (12:10)
[2018-09-19] MEDS ORDERED: DEXAMETHASONE 4 MG/ML VIAL IVP PRN (12:10)
[2018-09-19] MEDS ORDERED: MIDAZOLAM 2 MG/2 ML VIAL ONE (12:14)
[2018-09-19] MEDS ORDERED: fentaNYL 100 MCG/2 ML INJ ONE (12:23)
[2018-09-19] MEDS ORDERED: PROPOFOL/EMULSION 500 MG/50 ML BOTTLE IV ONE (12:23)
[2018-09-19] MEDS ORDERED: ePHEDrine SULFATE 25 MG/5 ML SYR ONE (13:15)
--- NOTE | 2018-09-19 13:57 | POSTANESTH ---
Post Anesthetic Evaluation Cardiovascular Status: Normal, Stable, Similar to Pre-Op Cond Respiratory Status: Normal, Stable, Similar to Pre-op Cond. Level of Consciousness/Mental Status: Can Participate in Eval, Mildly Sleepy, Arousable Pain Control: Adequate, Prn Tx Ordered Nausea/Vomiting Control: Adequate, Prn Tx Ordered Complications Possibly Related to Anesthesia: None Noted
--- NOTE | 2018-09-19 14:07 | EPPROC ---
Electrophysiology Procedure Note: Date: 09/19/2018 Merchandising Execution Associate: Sanjeev Andrade MD Procedures: Implant dual-chamber pacemaker [id number] Indications: 62-year-old male with symptomatic sick sinus syndrome. Techniques: Following informed consent, the patient was brought to the EP lab in a fasting nonsedated state, in sinus rhythm. IV antibiotics were administered. IV sedation was provided by the anesthesiology service. The left anterior chest was prepped and draped in usual sterile fashion. Under ultrasound guidance, vascular access was obtained in the extrathoracic portion of the left subclavian vein x2. A skin incision was made at the left deltopectoral groove and a cutdown was performed to the deltopectoral fascia; a subcutaneous pocket was fashioned. Two 6 Mongolian access sheaths were inserted over the wires. Pacing leads were delivered to RV septal and RA appendage positions, and actively fixated. The leads were anchored to the underlying fascia using 2 nonabsorbable sutures around each lead's retention sleeve. The leads were connected to a pulse generator, and the system was placed in pocket. A non resorbable stay suture was applied to the can. The pocket was irrigated with antibiotic solution, and D stat hemostatic matrix was injected. The incision was closed in layers using resorbable sutures, and dressed with Steri-Strips. Final fluoro showed stable system position, and no evidence of pneumothorax. The patient tolerated the procedure well. Pulse generator: Biotronik Edora 8DR-T, SN [id number], implant 09/19/18 DDDCLS 60-130 RA lead: Solia S53, SN [id number], implant 09/19/18 7.4mV, 624ohms, 0.5V@0.4ms RV lead: Solia S 45, SN [id number], implant 09/19/18 6.2mV, 507ohms, 0.5V@0.4ms EBL: Minimal Complications: None Plan: Bedrest 6 hr postprocedure, chest x-ray in a.m., keep incision dry for 2 weeks, left upper extremity restrictions for 1 month. Patient Problems: Problems Problem Status Onset Symptomatic bradycardia Acute
--- NOTE | 2018-09-19 15:53 | HOSPPROG ---
Hospitalist Progress Note Assessment/Plan: # syncopal events thought secondary to junctional bradycardia, possible tachy/ endy syndrome - pacemaker today, CXR in am # chest pain - nuc stress test neg 09/18 # hx AVR - stable on echo # possible a-fib - warfarin currently held - will d/w cards indication to resume prior to dc # migraines, absence seizures # FRANKIE - just got a home CPAP # Full code # Dispo - cont inpt, likely dc in am if CXR clear Subjective: Pt feels well, "I'm recovering". Denies pain. No CP or SOB. No fevers/chills. Objective: Vital Signs Temp Pulse Resp BP Pulse Ox 35.9 C L 62 18 123/79 H 96 09/19/18 15:36 09/19/18 15:36 09/19/18 15:36 09/19/18 15:36 09/19/18 15:36 Laboratory Results 09/19/18 03:22 09/19/18 03:22 PT 13.2 SEC (12.0-15.0) 09/19/18 03:22 INR 1.04 (0.83-1.16) 09/19/18 03:22 - Physical Exam Constitutional: no apparent distress Eyes: PERRL Ears, Nose, Mouth, Throat: moist mucous membranes Cardiovascular: regular rate and rhythym Respiratory: no respiratory distress, clear to auscultation Gastrointestinal: normoactive bowel sounds, soft, non-tender abdomen Skin: warm Musculoskeletal: full muscle strength Neurologic: AAOx3 Psychiatric: interacting appropriately ICD10 Worksheet Patient Problems: Problems Problem Status Onset Symptomatic bradycardia Acute
[2018-09-19] MEDS: OXYCODONE/APAP 5/325 TAB PO PRN (21:24)
[2018-09-20] MEDS: OXYCODONE/APAP 5/325 TAB PO PRN ×2 (02:13→07:37)
[2018-09-20 04:28] LABS: PLATELET COUNT 221 10^3/uL (150-400)
--- NOTE | 2018-09-20 06:45 | CPEKG ---
Test Reason : OPEN Blood Pressure : / mmHG Vent. Rate : 061 BPM Atrial Rate : 061 BPM P-R Int : 171 ms QRS Dur : 099 ms QT Int : 451 ms P-R-T Axes : 009 005 -09 degrees QTc Int : 455 ms Sinus rhythm Borderline T abnormalities, inferior leads Confirmed by Morgan Dempsey ([id number]) on 09/20/2018 6:45:34 AM Referred By: Juan M Ng Confirmed By:Morgan Dempsey
--- NOTE | 2018-09-20 10:49 | PDCARPN ---
Cardiology Progress Note Chief Complaint: s/p pacemaker implant Assessment/Plan: Assessment:1. bradycardia, near syncope/ syncope, s/p dual chamber PM implant yesterday. Incision site is dry and intact with steri strips. No swelling. Mild tenderness. Normal function on pacemaker interrogation done by [employer] rep this morning. Plan:1. Follow ups scheduled and entered in d/c plan as well as activity restrictions. Tylenol for discomfort. Awaiting chest xray results, ok to d/c if no pneumothorax. 09/20/18 10:43 09/20/18 10:45 Subjective: PM site a little tender. Reviewed/Discussed With: other (Dr. Andrade) Objective: Vital Signs (8 Hrs) Temp Pulse Resp BP Pulse Ox 09/20/18 07:35 36.4 C 62 16 105/74 93 09/20/18 03:19 36.7 C 63 13 96/65 L 95 Intake/Output (24 Hrs) 09/19/18 09/20/18 09/21/18 05:59 05:59 05:59 Intake Total 300 Balance 300 Intake: Oral (ml) 300 Other: Weight 76.204 kg Number of Voids Toilet 1 1 Result Diagrams: 09/20/18 03:16 09/20/18 03:16 EKG: AP/VS ICD10 Worksheet Patient Problems: Problems Problem Status Onset Symptomatic bradycardia Acute
[2018-09-20 11:23] VITALS: BP 99/62
--- NOTE | 2018-09-24 11:04 | PDDCSUM ---
Discharge Summary Discharge Summary: DOA: 09/17/2018 DOD: 09/20/2018 Discharge diagnoses: 1. Syncope 2. Symptomatic sick sinus syndrome Consultants: Dr. Andrade, cardiology/electrophysiology Procedures: Implantation of dual chamber pacemaker 09/19/2018 62 yo male with h/o SVT presented to the ED after multiple syncopal events. He was found to have symptomatic bradycardia with a junctional rhythm. He underwent a nuclear medicine stress test which was negative for ischemia. He then had a pacemaker placed and recovered without complication. Of note, pt had recently been anticoagulated with Warfarin for possible history of A fib. I discussed this with cardiology service prior to discharge. There has been no documented A fib since 2008 and it is advised that he may discontinue Coumadin. No other changes to home meds. See [employer] for complete outpatient medication list. Follow up in device clinic as per [facility].
--- NOTE | 2018-09-26 08:45 | CPEKG ---
Test Reason : OPEN Blood Pressure : / mmHG Vent. Rate : 068 BPM Atrial Rate : 068 BPM P-R Int : 221 ms QRS Dur : 096 ms QT Int : 436 ms P-R-T Axes : 008 041 036 degrees QTc Int : 464 ms Atrial-paced rhythm Atrial pacing is new in comparison to prior Confirmed by Jaime Russo ([id number]) on 09/26/2018 8:45:20 AM Referred By: Juan M Ng Confirmed By:Jaime Russo
== END 2018-09-20 15:04 | disposition home or self-care (01) | DRG 244 ==
LOC: F2W 16:52 → OBSVTOIN 09-18 16:09
PROVIDERS: ADMIT Student in an Organized Health Care Education/Training Program; ATTEND Student in an Organized Health Care Education/Training Program
PROC: 0JH606Z Insertion of Pacemaker, Dual Chamber into Chest Subcutaneous Tissue and Fascia, Open Approach (ICD-10-PCS; principal; 2018-09-19)
PROC: 02HK3JZ Insertion of Pacemaker Lead into Right Ventricle, Percutaneous Approach (ICD-10-PCS; principal; 2018-09-19)
PROC: 02H63JZ Insertion of Pacemaker Lead into Right Atrium, Percutaneous Approach (ICD-10-PCS; principal; 2018-09-19)
DX: I49.5 Sick sinus syndrome (principal); G47.33 Obstructive sleep apnea (adult) (pediatric); I48.0 Paroxysmal atrial fibrillation; G43.909 Migraine, unspecified, not intractable, without status migrainosus; Z95.3 Presence of xenogenic heart valve; F41.9 Anxiety disorder, unspecified
CPT/HCPCS: 84484-ER; A4649; A9500; C1785; C1898; G0378; J0461; J0690; J2250; J2704; J2785; J3010